=== PATIENT | male | born 1995 | race Caucasian/White ===

== ENCOUNTER → 2017-04-10 | Outpatient (REF) | payer OTHER | LOC: M LAB REF 16:33 | PROVIDERS: ATTEND Physician Assistant | DX: J02.9 Acute pharyngitis, unspecified (principal) ==

== ENCOUNTER → 2018-08-02 | Outpatient (REF) | payer OTHER | LOC: M LAB REF 16:12 | PROVIDERS: ATTEND Physician Assistant | DX: J02.9 Acute pharyngitis, unspecified (principal) ==

== ENCOUNTER → 2021-02-22 | Outpatient (REF) | payer OTHER ==
[2021-02-22 15:12] LABS: GC DNA AMPLIFICATION NEGATIVE (NEGATIVE)
== END ==
LOC: M LAB REF 12:19
PROVIDERS: ATTEND Physician Assistant Medical
DX: Z20.2 Contact with and (suspected) exposure to infections with a predominantly sexual mode of transmission (principal)

== ENCOUNTER 2025-08-09 16:48 | Emergency (ER) | payer BC, OTHER ==
[~2025-08-09] VITALS: Ht 170.2 cm; Wt 130.0 kg
[2025-08-09 17:34] LABS: BASO # 0.0 10^3/uL (0.0-0.2); BASO % 0.4 % (0.0-1.0); EOS # 0.0 10^3/uL (0.0-0.5); EOS % 0.1 % (0.0-3.0); LYMPH # 0.8 10^3/uL (1.5-5.0); LYMPH % 9.9 % (24.0-44.0); MONO # 0.9 10^3/uL (0.0-0.8); MONO % 12.0 % (2.0-8.0); NEUTROPHILS # 6.0 10^3/uL (1.5-8.5); NEUTROPHILS % 77.0 % (36.0-66.0); PLATELET COUNT, AUTOMATED 141 10^3/uL (150-450)
[2025-08-09 18:01] LABS: CALCIUM LEVEL 8.4 MG/DL (8.5-10.1); CARBON DIOXIDE LEVEL 23 MMOL/L (20-31); CHLORIDE LEVEL 101 MMOL/L (98-107); CREATININE FOR GFR 0.91 MG/DL (0.70-1.30); GLOMERULAR FILTRATION RATE > 90.0 (>60); POTASSIUM SERUM 4.2 MMOL/L (3.5-5.1); SODIUM LEVEL 134 MMOL/L (136-145)
[2025-08-09] MEDS ORDERED: OSEL75CA PO (20:06)
[2025-08-09] MEDS ORDERED: ONDA-282 PO (20:08)
[2025-08-09] MEDS: ONDANSETRON 4MG/2ML VIAL IV ONE (20:10)
[2025-08-09] MEDS: OSELTAMIVIR PHOSPHATE 75 MG CAP PO ONE (20:10)
[2025-08-09] MEDS: NS (Normal Saline) 0.9% 1,000 ML IV ONE (20:11)
[2025-08-09] MEDS: ACETAMINOPHEN *IV* 1,000 MG in IV 1 EA IV ONE (20:11)
[2025-08-09 21:22] VITALS: BP 135/66; TEMP 98.8; O2SAT 95
[2025-08-09] MEDS ORDERED: ONDANSETRON 4MG ORAL DISINTEGRATING TAB PO ONE (21:25)
== END 2025-08-09 21:46 | disposition home or self-care (01) ==
LOC: M ED 16:48
DX: J09.X2 Influenza due to identified novel influenza A virus with other respiratory manifestations (principal)
CPT/HCPCS: 80048; 85025; 87486; 87581; 87633; 87798; 93005; 96365; 96366; 96375; 99284; J0134; J2405